=== PATIENT | female | born 2000 | race Caucasian/White ===

== ENCOUNTER 2022-12-22 07:50 | Emergency (ER) | payer MEDICAID ==
[~2022-12-22] VITALS: Ht 149.9 cm; Wt 72.1 kg
[2022-12-22 08:00] VITALS: BP 124/57
--- NOTE | 2022-12-22 08:10 | NUR ---
PATIENT AMBULATED TO BED 7.
--- NOTE | 2022-12-22 08:15 | NUR ---
22YO FEMALE PT C/O FACIAL SWELLING AND RASH X2DAYS. REPORTS SUDDEN ONSET. REDDENED SWELLING NOTED CHARMAINE AROUND EYES. STATES STARTING RX LAMICTAL [id number]. DENIES CHEST PAIN, SOB, N/V/D, FEVER OR CHILLS. PT AAOX4, RESPIRATIONS EVEN AND UNLABORED. HX:DENIES ALLERGIES: AZITHROMYCIN
[2022-12-22] MEDS ORDERED: CETI10SG1 PO (08:37)
[2022-12-22] MEDS ORDERED: PRED50TA2 PO (08:37)
--- NOTE | 2022-12-22 08:48 | NUR ---
The patient's care was reviewed and supervised by Kylah Tran, RN, RN.
--- NOTE | 2022-12-22 08:48 | NUR ---
Patient discharged with v/s stable. Written and verbal after care instructions FOR ANGIOEDEMA given and explained. Patient alert, oriented and verbalized understanding of instructions. Ambulatory with steady gait. All questions addressed prior to discharge. ID band removed. Patient advised to follow up with PMD. Rx of ZYRTEC AND PREDNISONE given. Opportunity to ask questions provided and answered.
== END 2022-12-22 08:48 | disposition home or self-care (01) ==
LOC: MED 07:50
DX: T78.3XXA Angioneurotic edema, initial encounter (principal); Z88.1 Allergy status to other antibiotic agents; Z79.899 Other long term (current) drug therapy
CPT/HCPCS: 99283

== ENCOUNTER 2022-12-23 11:42 | Emergency (ER) | payer MEDICAID ==
[~2022-12-23] VITALS: Ht 149.9 cm; Wt 72.1 kg
[~2022-12-23 11:42] MED LIST: CETI10SG1 PO; PRED50TA2 PO
[2022-12-23 11:53] VITALS: BP 120/80
[2022-12-23 13:10] VITALS: BP 110/65
--- NOTE | 2022-12-23 13:10 | NUR ---
Patient discharged with v/s stable. Written and verbal after care instructions given and explained. Patient verbalized understanding. Ambulatory with steady gait. All questions addressed prior to discharge. Advised to follow up with PMD.
[2022-12-23 14:19] LABS: APPEARANCE,URINE CLEAR (CLEAR); BILIRUBIN,URINE NEGATIVE (NEGATIVE); BLOOD, URINE 1+ (NEGATIVE); COLOR,URINE YELLOW (YELLOW); LEUKOCYTE ESTERASE ,URINE TRACE (NEGATIVE); NITRITE, URINE NEGATIVE (NEGATIVE); UGLUCOSE NEGATIVE (NEGATIVE)
[2022-12-23 14:32] LABS: RBC,URINE 0-5 /HPF (0-5); WBC,URINE 0-5 /HPF (0-5)
== END 2022-12-23 13:10 | disposition home or self-care (01) ==
LOC: MED 11:42
DX: R21 Rash and other nonspecific skin eruption (principal); N76.89 Other specified inflammation of vagina and vulva; Z79.899 Other long term (current) drug therapy; Z88.1 Allergy status to other antibiotic agents
CPT/HCPCS: 81001; 81025; 99283